=== PATIENT | male | born 1980 | race Caucasian/White ===

== ENCOUNTER → 2023-06-19 | Outpatient (CLI) | payer BC ==
[~2023-06-19] MED LIST: IBUP600 PO
[2023-06-19 07:20] LABS: Source, Urine Clean Catch
[2023-06-19 10:53] LABS: Appearance, Urine Clear (Clear); Bilirubin, Urine Neg (Neg); Blood, Urine Neg (Neg); Color, Urine Yellow (P-Yellow); Glucose Qualitative, Urine Neg (Neg); Ketones, Urine Neg (Neg); Leukocyte Esterase, Urine Neg (Neg); Nitrite, Urine Neg (Neg); Protein, Urine Neg (Neg); Urobilinogen, Urine NORM (Normal)
== END | disposition home or self-care (01) ==
LOC: LAB 07:19 → LAB SHORT 07:19 → EDSTATUS 06-17 10:00 → LAB FUT 06-17 10:00
PROVIDERS: Internal Medicine
DX: R31.29 Other microscopic hematuria (principal)
CPT/HCPCS: 81003

== ENCOUNTER 2024-11-09 12:26 | Day surgery (SDC) | payer BC ==
[~2024-11-09] VITALS: Ht 172.7 cm; Wt 96.4 kg
[~2024-11-09 12:26] MED LIST changes: +Lactated Ringer's 1,000 ML IV ONE; +propofoL 50 ML IV ONE
[2024-11-09] MEDS ORDERED: VITAMIN D31250 MC2 (12:38)
[2024-11-09] MEDS ORDERED: LOSA50 (12:38)
[2024-11-09] MEDS ORDERED: Loratadine10 MG (12:39)
[2024-11-09] MEDS ORDERED: Lactated Ringer's 1,000 ML IV ONE (13:04)
[2024-11-09 14:21] VITALS: BP 120/78
== END 2024-11-09 14:31 | disposition home or self-care (01) ==
LOC: ORSCSDS 12:26
PROVIDERS: Surgery
PROC: 0DJD8ZZ Inspection of Lower Intestinal Tract, Via Natural or Artificial Opening Endoscopic (ICD-10-PCS; principal; 2024-11-09 13:45)
DX: Z12.11 Encounter for screening for malignant neoplasm of colon (principal); K21.9 Gastro-esophageal reflux disease without esophagitis; I10 Essential (primary) hypertension; E83.39 Other disorders of phosphorus metabolism; Z79.899 Other long term (current) drug therapy
CPT/HCPCS: J2704; J7120